=== PATIENT | male | born 1960 | race Caucasian/White ===

== ENCOUNTER → 2021-05-08 10:12 | Outpatient (BNVA) | payer OTHER, SELFPAY | PROVIDERS: PCP Internal Medicine; Referring Provider Internal Medicine; Visit Provider Surgery | DX: D17.79 Benign lipomatous neoplasm of other sites (principal) | CPT/HCPCS: 99202 ==

== ENCOUNTER 2024-02-24 10:37 | Outpatient (AMB) | payer OTHER, SELFPAY ==
--- NOTE | 2024-02-24 11:30 | MHC.PC.OV ---
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 Vega Intake Note: Pt is here today for a New patient visit PE. Pt states that he has a lump on his back that he would like to have the doctor look at. 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 [facility] Medical History (Updated 02/24/24 @ 12:37 by Janell Vega MD) Lipoma Psoriasis Smoker History of alcoholism Surgical History (Updated 02/24/24 @ 12:41 by Janell Vega MD) History of surgery on arm (2019) Family History Mother Family history of thyroid problem Father Heart attack Paternal Aunt Lung cancer Paternal Uncle Lung cancer Paternal Uncle Lung cancer Maternal Uncle Colon cancer Social History Housing: Apartment Alcohol intake: former Patient Tobacco Use Status: Current everyday Tobacco user Cigarettes Per Day: 10 e-Cigarette/Vaping Use: Currently Using service: Yes Current occupational status: retired Cognitive needs: No Hearing needs: No Vision needs: No Questionnaire PHQ-9 Over the last 2 weeks, how often have you been bothered by any of the following problems? 1. Little interest or pleasure in doing things: not at all 2. Feeling down, depressed, or hopeless: several days 3. Trouble falling or staying asleep, or sleeping too much: several days 4. Feeling tired or having little energy: several days 5. Poor appetite or overeating: several days 6. Feeling bad about yourself - or that you are a failure or have let yourself or your family down: several days 7. Trouble concentrating on things, such as reading the newspaper or watching television: not at all 8. Moving or speaking so slowly that other people could have noticed. Or the opposite - being so fidgety or restless that you have been moving around a lot more than usual: several days 9. Thoughts that you would be better off or of hurting yourself in some way: not at all Total score: 6 Depression Screening Interpretation: Negative Depression Screening Done: Yes 63126 - PHQ-9 Billing: Yes Source: Developed by Drs. Kirk Mullins, Leola Pinon, Kei Mccoy and colleagues, with an educational serina from [employer]. Thrive Questionnaire Date Thrive assessed: 01/18/24 I am a: Patient What is your living situation today?: I have a steady place to live Within the past 12 months, did the food you bought not last and you didn't have the money to get more?: Sometimes True Within the past 12 months, did you worry whether your food would run out before you got money to buy more?: Sometimes True Do you have trouble paying for medicines?: Yes Do you have trouble getting transportation to medical appointments?: No Do you have trouble paying your heating and electricity bill?: No Do you have trouble taking care of your child, family member or friend?: No Do you have trouble with day-to-day activities such as bathing, preparing meals, shopping, managing finances, etc.?: Yes Are you currently unemployed and looking for a job?: Yes Are you interested in more education?: I choose not to answer this question Please select the resources that you would like help with: None Currently or been in a relationship where the following occur: I choose not to answer THRIVE Score: 2 AUDIT C Alcohol Use Questionnaire (AUDIT-C) 1. How often do you have a drink containing alcohol?: Monthly or less 2. How many drinks containing alcohol do you have on a typical day when you are drinking?: 10 or more 3. How often do you have six or more drinks on one occasion?: Never Total Score: 5 TAMI-7 AMB Questionnaire TAMI-7 Feeling nervous, anxious, or on edge: 1 = Several days Not being able to stop or control worryin = Several days Worrying too much about different things: 1 = Several days Trouble relaxin = Several days Being so restless that it is hard to sit still: 1 = Several days Becoming easily annoyed or irritable: 1 = Several days Feeling afraid as if something awful might happen: 1 = Several days Total TAMI-7 score (0-4 normal; 5-9 mild; 10-14 moderate; 15-21 severe): 7 Source: Developed by Drs. Kirk Mullins, Leola Pinon, Kei Mccoy and colleagues, with an educational serina from [employer]. Review of Systems Const All systems reviewed & are unremarkable except as noted in HPI and below Reports no additional complaints Eyes Reports no additional complaints ENT Reports no additional complaints Card Reports no additional complaints Resp Reports no additional complaints GI Reports no additional complaints Reports no additional complaints Physical exam (Primary Care) Vital Signs: Last Vital Signs Pulse 66 02/24/24 11:31 BP 114/76 02/24/24 11:31 Pulse Ox 98 02/24/24 11:31 Oxygen Delivery Method Room Air 02/24/24 11:31 BMI result Body Mass Index 24.9 Tobacco/Smoking Status: Tobacco use Status Tobacco use date assessed 02/24/24 02/24/24 11:32 Patient Tobacco Use Status Current everyday Tobacco 02/24/24 11:54 e-Cigarette/Vaping Use Currently Using 02/24/24 11:54 PHQ-9: PHQ-9 Score PHQ-9: Total score 6 02/24/24 12:35 Depression Screening Interpretation: Negative Thrive Assessment: Date of Thrive Assessment Date Thrive assessed 01/18/24 02/24/24 11:32 Currently or been in a relationship where the following occur: I choose not to answer Const General: no acute distress HENMT Head: Yes normal to inspection Ears: hearing grossly normal bilaterally Face and sinus: Yes normal facial exam Mouth: Normal oral and palatal mucosa present Teeth and gingiva: dentition normal Eyes General: appearance normal, both eyes and all related structures Neck Neck: Yes no lymphadenopathy and Yes supple Resp Effort & Inspection: normal respiratory effort Auscultation: clear to auscultation bilaterally Cardio Rhythm: regular rhythm Heart sounds: S1 normal heart sound present and S2 normal heart sound present GI Inspection: Yes normal to inspection Palpation (GI): Soft to palpation Percussion: Yes normal to percussion Auscultation: normal bowel sounds Assessment and Plan Assessment & Plan (1) Annual physical exam: Code(s): Z00.00 - Encounter for general adult medical examination without abnormal findings Plan: Well-balanced diet regular physical activity discussed with the patient. he will return for fasting blood work. He will be referred to GI for colonoscopy, general surgeon to remove a lipoma on his back and thoracic surgeon for lung cancer screening program. Tobacco quitting discussed with the patient (2) Lipoma: Code(s): D17.9 - Benign lipomatous neoplasm, unspecified Qualifiers: Lipoma location: other site Qualified Code(s): D17.79 - Benign lipomatous neoplasm of other sites (3) Hx of colonoscopy: Comment: 2018, polyps, repeat 5 yrs Code(s): Z98.890 - Other specified postprocedural states Orders: Orders UA w Microscopic 02/09/24 Z00.00 - Encounter for general adult medical examination without abnormal findings Comprehensive [place]. Panel Fast 02/09/24 Z00.00 - Encounter for general adult medical examination without abnormal findings Complete Blood Count Auto Diff 02/09/24 Z00.00 - Encounter for general adult medical examination without abnormal findings Lipid Panel 02/09/24 Z00.00 - Encounter for general adult medical examination without abnormal findings PSA,Total (Free>4and<10) 02/09/24 Z00.00 - Encounter for general adult medical examination without abnormal findings Referrals Thoracic/General Surgery Referral F17.200 - Nicotine dependence, unspecified, uncomplicated Gastroenterology Referral Z00.00 - Encounter for general adult medical examination without abnormal findings General Surgery Referral D17.79 - Benign lipomatous neoplasm of other sites Medications: New triamcinolone acetonide 0.1% 1 appl topical DAILY 453.6 grams 1RF Coding Level of Care Code New Pt Prev Care 40-64y(91953) Diagnoses Annual physical exam Z00.00 Lipoma of other specified sites D17.79 Lipoma location: other site Hx of colonoscopy Z98.890
[2024-02-24 11:31] VITALS: BP 114/76; PULSE 66; O2SAT 98; BMI 24.9
== END 2024-02-24 12:50 | disposition home or self-care (01) ==
PROVIDERS: PCP Internal Medicine; Visit Provider Internal Medicine
DX: Z00.00 Encounter for general adult medical examination without abnormal findings (principal); D17.79 Benign lipomatous neoplasm of other sites; Z98.890 Other specified postprocedural states
CPT/HCPCS: 99386

== ENCOUNTER 2024-03-15 12:55 | Outpatient (REF) | payer OTHER, SELFPAY ==
[2024-03-15 16:15] LABS: MANUAL DIFF FLAG NO
[2024-03-15 16:19] LABS: Basophils Absolute Auto 0.1 X10*3/uL (0.0-0.2); Basophils Percent Auto 0.7 % (0-2); Eosinophils Absolute Auto 0.2 X10*3/uL (0.0-0.4); Eosinophils Percent Auto 2.2 % (0-4); Hematocrit 46.4 % (42.0-52.0); Hemoglobin 15.1 g/dl (14.0-18.0); Imm Gran Abs Auto 0.02 X10*3/uL (0.00-0.03); Imm Gran Pct Auto 0.3 % (0.0-0.4); Lymphocytes Absolute Auto 1.9 X10*3/uL (1.2-4.9); Lymphocytes Percent Auto 25.8 % (20-40); Mean Corpuscular HGB Conc 32.5 g/dl (31.0-36.0); Mean Corpuscular Hemoglobin 30.1 pg (27.0-33.0); Mean Corpuscular Volume 92.4 fL (80.0-98.0); Mean Platelet Volume 11.8 fL (9.4-12.4); Monocytes Absolute Auto 0.4 X10*3/uL (0.1-1.2); Monocytes Percent Auto 5.8 % (2-11); Neutrophils Absolute Auto 4.9 x10*3/uL (2.0-8.3); Neutrophils Percent Auto 65.2 % (45-73); Platelet Count 177 X10*3/uL (160-400); Red Blood Count 5.02 X10*6/uL (4.60-5.80); Red Cell Distribution Width 14.2 % (11.0-16.0); White Blood Count 7.4 X10*3/uL (4.8-10.8)
[2024-03-15 16:28] LABS: Appearance Urine Clear; Color Urine Yellow; Glucose Urine UA Negative (Negative); Leukocyte Esterase Urine Negative (Negative); Nitrite Urine Negative (Negative); Specific Gravity - Urine 1.015 (1.005-1.025); Urine Blood Negative (Negative); Urine Ketones Trace mg/dL (Negative); Urine Protein Negative (Neg-Trace)
[2024-03-15 16:32] LABS: Bacteria Urine None Seen (None Seen); Hyaline Casts Urine 0-2 /LPF (0-2); RBC Urine 0-2 /HPF (0-2); Squamous Epithelial Cell Urine 0-2 /HPF (0-2); WBC Urine 0-5 /HPF (0-5)
[2024-03-15 16:43] LABS: Alanine Aminotransferase 13 U/L (0-40); Albumin Level 4.7 g/dL (3.5-5.0); Alkaline Phosphatase 73 U/L (39-117); Anion Gap 13 (12-20); Aspartate Amino Transferase 20 U/L (5-37); Bilirubin Total 0.7 mg/dL (0.0-1.0); Blood Urea Nitrogen 14 mg/dL (9-16); Calcium 9.9 mg/dL (8.4-10.2); Carbon Dioxide 27 mmol/L (22-29); Chloride 104 mmol/L (96-108); Cholesterol 182 mg/dL (<200); Estimated Glomerular Filt Rate > 60; Glucose Fasting 86 mg/dL (60-99); HDL Cholesterol 55 mg/dL (>40); LDL Cholesterol Calculated 117 mg/dL (<100); Potassium 4.5 mmol/L (3.3-5.1); Sodium 139 mmol/L (135-145); Triglycerides 53 mg/dL (<150)
[2024-03-15 16:59] LABS: TSH reflex Free T4 1.15 uIU/mL (0.32-4.0)
== END 2024-03-15 12:56 | disposition home or self-care (01) ==
LOC: HO.HMGCLDS 12:55
PROVIDERS: PCP Internal Medicine; Visit Provider Internal Medicine
DX: Z00.00 Encounter for general adult medical examination without abnormal findings (principal)
CPT/HCPCS: 36415; 80053; 80061; 81001; 84153; 84443; 85025

== ENCOUNTER 2024-03-22 13:10 | Outpatient (AMB) | payer OTHER, SELFPAY ==
--- NOTE | 2024-03-22 13:16 | MHC.OFFVIS ---
Vital Signs 03/22/24 13:20 Height 6 ft 1 in Weight 189 lb 0.001 oz BMI 24.9 Intake Visit Reasons: Benign lipomatous neoplasm of the back Intake Note: This patient presents for Benign lipomatous neoplasm of the back. Pt c/o; reports bulge back. Behavioral Health Care Coordinator Required: No Accompanied by: Self / Same As Patient Allergies No Known Allergies [No Known Allergies*] Allergy (Verified 03/22/24 13:21) Medication List - Last Reconciled 03/22/24 by Cliff Brizuela MD triamcinolone acetonide 0.1% 1 appl topical DAILY HPI HPI Benign lipomatous neoplasm of the back: Details: 63-year-old male referred for a lipoma of the back. He has had this for about over 2 years now. He says that this has been increasing in size. We therefore wants this removed. [facility] Medical History Lipoma of back Nicotine dependence, cigarettes, uncomplicated Lipoma Psoriasis History of alcoholism Surgical History History of foot surgery Hx of colonoscopy History of surgery on arm (2019) Family History Mother Family history of thyroid problem Father Heart attack Paternal Aunt Lung cancer Paternal Uncle Lung cancer Paternal Uncle Lung cancer Maternal Uncle Colon cancer Social History Housing: Apartment Alcohol intake: former Patient Tobacco Use Status: Current everyday Tobacco user Cigarettes Per Day: 10 e-Cigarette/Vaping Use: Currently Using service: Yes Current occupational status: retired Cognitive needs: No Hearing needs: No Vision needs: No Review of Systems Const Denies chills and Denies fever(s) Card Denies chest pain, Denies dyspnea and Denies dyspnea on exertion Resp Denies cough, Denies dyspnea and Denies dyspnea on exertion GI Denies hematochezia and Denies change in bowel habits Denies hematuria and Denies difficulty urinating Musc Denies back pain and Denies limited range of motion Neuro Denies focal weakness and Denies convulsions Psych Denies depression and Denies mood swings Physical Exam Const General: comfortable and no acute distress Orientation/consciousness: patient oriented x3 Neck Neck: Yes no lymphadenopathy Resp Auscultation: clear to auscultation bilaterally Cardio Rhythm: regular rhythm GI Palpation (GI): Soft to palpation, nontender and no guarding Back/Spine/Pelvis Other: Lipomatous mass, about 4.5 cm in widest dimension, mobile, well-defined, on the upper back a little to the right Neuro General: patient oriented x3 Quality Reporting (2019) Adult ([facility] 138/08/19/68) Smoking risk assessment performed?: Yes Patient Tobacco Use Status: Current everyday Tobacco user Assessment & Plan Assessment & Plan (1) Lipoma of back: Code(s): D17.1 - Benign lipomatous neoplasm of skin and subcutaneous tissue of trunk Category: Medical Plan I explained the technique of excision of the lipoma from the back under local anesthesia. I reviewed the risks including but not limited to bleeding and infections, as well as the benefits and alternatives. He understands and wants to proceed. We will schedule him for excision in the office on his next visit. Coding Level of Care Code New Pt Level 3 (03869) Diagnoses Lipoma of back D17.1
[2024-03-22 13:20] VITALS: BMI 24.9
== END 2024-03-22 13:30 | disposition home or self-care (01) ==
PROVIDERS: PCP Internal Medicine; Visit Provider Surgery
DX: D17.1 Benign lipomatous neoplasm of skin and subcutaneous tissue of trunk (principal)
CPT/HCPCS: 99203

== ENCOUNTER → 2024-03-22 13:10 | Outpatient (BNVA) | payer OTHER, SELFPAY | PROVIDERS: PCP Internal Medicine; Visit Provider Surgery | DX: D17.1 Benign lipomatous neoplasm of skin and subcutaneous tissue of trunk (principal) | CPT/HCPCS: 99202 ==

== ENCOUNTER 2024-04-05 13:58 | Outpatient (REF) | payer OTHER, SELFPAY | END 2024-04-05 13:59 | disposition home or self-care (01) | LOC: HO.LNP 13:58 | PROVIDERS: PCP Internal Medicine; Visit Provider Surgery | DX: D17.1 Benign lipomatous neoplasm of skin and subcutaneous tissue of trunk (principal) | CPT/HCPCS: 11406; 88304 ==

== ENCOUNTER 2024-04-05 13:58 | Outpatient (AMB) | payer OTHER, SELFPAY ==
--- NOTE | 2024-04-05 13:58 | MHC.OFFVIS ---
Intake Visit Reasons: excision lipoma back Intake Note: Office procedure: excision lipoma back Project Product Manager Required: No Accompanied by: Self / Same As Patient Allergies No Known Allergies [No Known Allergies*] Allergy (Verified 04/05/24 13:59) HPI HPI excision lipoma back: Details: He is here for excision of a lipoma from the back [facility] Medical History Lipoma of back Nicotine dependence, cigarettes, uncomplicated Lipoma Psoriasis History of alcoholism Surgical History History of foot surgery Hx of colonoscopy History of surgery on arm (2019) Family History Mother Family history of thyroid problem Father Heart attack Paternal Aunt Lung cancer Paternal Uncle Lung cancer Paternal Uncle Lung cancer Maternal Uncle Colon cancer Social History Housing: Apartment Alcohol intake: former Patient Tobacco Use Status: Current everyday Tobacco user Cigarettes Per Day: 10 e-Cigarette/Vaping Use: Currently Using service: Yes Current occupational status: retired Cognitive needs: No Hearing needs: No Vision needs: No Office Procedures Excision Details: He was in prone position. The area of the lipoma on the upper back was prepped and draped. Lidocaine 1% was used for local anesthesia. I made an incision on the skin overlying the lipoma with a blade 15. This is carried down sharply through the full-thickness of the skin subcutaneous fat until was able to visualize the lipoma. I sharply dissected the lipoma off of the rest of the subcutaneous layer and the underlying fascia using Metzenbaum scissors until this was delivered and sent as a specimen. The lipoma measured about 4.1 cm in widest dimension. I closed the incision with full-thickness nylon 3-0 simple interrupted sutures. Dressings were applied. The procedure was completed. He tolerated procedure well. There were no immediate complications. 22131-ghpac/arms/legs >4cm Procedure code (CPT) selection complete Quality Reporting (2019) Adult ([facility] 138/08/19/68) Smoking risk assessment performed?: Yes Patient Tobacco Use Status: Current everyday Tobacco user Assessment & Plan Assessment & Plan (1) Lipoma: Code(s): D17.9 - Benign lipomatous neoplasm, unspecified Category: Medical Qualifiers: Lipoma location: other site Qualified Code(s): D17.79 - Benign lipomatous neoplasm of other sites Plan: Excision done in the office. He tolerated procedure well. He was given wound care instructions. I will see him in the office for removal of sutures in about 2 weeks. Coding Level of Care Code Procedure Only Diagnoses Lipoma of other specified sites D17.79 Lipoma location: other site CPT Codes Trunk/Arms/Legs - CPT: 22278-qsliq/arms/legs >4cm ([id number])
== END 2024-04-05 14:20 | disposition home or self-care (01) ==
PROVIDERS: PCP Internal Medicine; Visit Provider Surgery
DX: D17.1 Benign lipomatous neoplasm of skin and subcutaneous tissue of trunk (principal)
CPT/HCPCS: 11406

== ENCOUNTER → 2024-04-19 13:15 | Outpatient (BNVA) | payer OTHER, SELFPAY | PROVIDERS: PCP Internal Medicine; Visit Provider Surgery | DX: Z48.02 Encounter for removal of sutures (principal) | CPT/HCPCS: 99211 ==

== ENCOUNTER 2025-03-22 12:19 | Outpatient (AMB) | payer OTHER, SELFPAY ==
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
[2025-03-22 13:04] VITALS: BP 128/82; PULSE 72; RESP 18; TEMP 36.9; O2SAT 98; BMI 24.3
== END 2025-03-22 14:16 | disposition home or self-care (01) ==
LOC: HO.HMCC 12:20
PROVIDERS: PCP Internal Medicine; Visit Provider Internal Medicine
DX: M25.572 Pain in left ankle and joints of left foot (principal); Z00.00 Encounter for general adult medical examination without abnormal findings

== ENCOUNTER 2025-03-22 12:19 | Outpatient (REF) | payer OTHER, SELFPAY ==
--- NOTE | ~2025-03-22 | XR_ITS ---
EXAMINATION: XR ANKLE, LEFT CLINICAL INFORMATION: M25.572 - Pain in left ankle and joints of left foot COMPARISON: 09/04/2016. TECHNIQUE: AP, lateral, and mortise views of the left ankle. FINDINGS: No definite fracture, dislocation, or suspicious bone lesion. There is normal alignment. The ankle mortise is preserved. The talar dome is intact. There are mild degenerative arthritic changes in the ankle joint. The subtalar joints demonstrate mild to moderate arthritic change. There is a healed fracture of the calcaneus. There is no soft tissue abnormality. XR/XR ankle LT min 3V IMPRESSION: 1. No acute bony abnormalities. 2. 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 3. Healed fracture of the calcaneus. Electronically signed by: Farhad Pierre MD 03/22/2025 01:50 PM EDT
== END 2025-03-22 12:20 | disposition home or self-care (01) ==
LOC: HO.HMGCX 12:19
PROVIDERS: PCP Internal Medicine; Visit Provider Internal Medicine
DX: Z00.00 Encounter for general adult medical examination without abnormal findings (principal); M25.572 Pain in left ankle and joints of left foot; Z79.899 Other long term (current) drug therapy
CPT/HCPCS: 73610; 96127; 99212

== ENCOUNTER → 2025-03-22 13:32 | Outpatient (BNV) | payer OTHER, SELFPAY | PROVIDERS: PCP Internal Medicine; Visit Provider Radiology Diagnostic Radiology | DX: S92.002D Unspecified fracture of left calcaneus, subsequent encounter for fracture with routine healing (principal); M19.072 Primary osteoarthritis, left ankle and foot | CPT/HCPCS: 73610 ==